=== PATIENT | female | born 1985 | race Caucasian/White ===

== ENCOUNTER 2018-05-06 11:16 | Outpatient (CLI) | payer OTHER ==
[2018-05-06] MEDS: BETAMETHASONE SOLUSPAN 6MG/ML INJ 5ML (J0702) IM (11:38)
[2018-05-07] MEDS ORDERED: BETAMETHASONE SOLUSPAN 6MG/ML INJ 5ML (J0702) IM (12:15)
== END 2018-05-06 11:40 | disposition home or self-care (01) ==
LOC: M LDO 11:16
DX: O26.893 Other specified pregnancy related conditions, third trimester (principal); Z3A.31 31 weeks gestation of pregnancy; O26.853 Spotting complicating pregnancy, third trimester
CPT/HCPCS: J0702

== ENCOUNTER 2018-05-07 14:01 | Outpatient (CLI) | payer OTHER ==
[2018-05-07] MEDS: BETAMETHASONE SOLUSPAN 6MG/ML INJ 5ML (J0702) IM (14:29)
== END 2018-05-07 15:00 | disposition home or self-care (01) ==
LOC: M LDO 14:01
DX: O26.893 Other specified pregnancy related conditions, third trimester (principal); Z3A.31 31 weeks gestation of pregnancy
CPT/HCPCS: J0702

== ENCOUNTER 2018-05-18 15:15 | Inpatient (IN) | payer OTHER ==
[2018-05-18] MEDS ORDERED: ACETAMINOPHEN TAB 650MG DOSE (2X325MG) PO (17:45)
[2018-05-18] MEDS ORDERED: DOCUSATE SODIUM 100 MG CAP PO (17:45)
[2018-05-18] MEDS ORDERED: diphenhydrAMINE 25 MG CAP PO (17:45)
[2018-05-18] MEDS: AZITHROMYCIN 250 MG TAB PO (17:45)
[2018-05-18] MEDS: AMPICILLIN SOD 2 GM in APPROPRIATE DILUENT 20 ML IV (17:45)
[2018-05-18 18:37] LABS: BASO % 0.2 % (0.0-1.0); EOS % 0.4 % (0.0-3.0); HEMATOCRIT 36.4 % (36.0-47.0); HEMOGLOBIN 12.2 g/dl (12.0-15.5); IMMATURE GRANULOCYTE % 0.4 % (0-3.0); LYMPH % 10.5 % (24.0-44.0); MEAN CORPUSCULAR HEMOGLOBIN 28.6 pg (27.0-33.0); MEAN CORPUSCULAR HGB CONC 33.5 g/dl (32.0-36.5); MEAN CORPUSCULAR VOLUME 85.4 fl (80.0-96.0); MONO # 0.5 10^3/uL (0.0-0.8); MONO % 5.3 % (0.0-5.0); NEUTROPHILS % 83.2 % (36.0-66.0); PLATELET COUNT, AUTOMATED 209 10^3/uL (150-450); RED BLOOD COUNT 4.26 10^6/uL (4.00-5.40); WHITE BLOOD COUNT 9.7 10^3/uL (4.0-10.0)
[2018-05-18 19:08] LABS: AMPHETAMINES URINE REFLEX NEGATIVE (NEGATIVE); BARBITURATES URINE REFLEX NEGATIVE (NEGATIVE); BENZODIAZEPINES URINE REFLEX NEGATIVE (NEGATIVE); CANNABINOIDS URINE REFLEX NEGATIVE (NEGATIVE); COCAINE METABOLITE URINE REFLE NEGATIVE (NEGATIVE); METHADONE URINE REFLEX NEGATIVE (NEGATIVE); OPIATES URINE REFLEX NEGATIVE (NEGATIVE); PHENCYCLIDINE URINE REFLEX NEGATIVE (NEGATIVE)
[2018-05-18 19:16] LABS: AMORPHOUS SEDIMENT SMALL (NEGATIVE); APPEARANCE, URINE CLEAR (CLEAR); BACTERIA, URINE AUTO NEGATIVE (NEGATIVE); BILIRUBIN, URINE AUTO NEGATIVE (NEGATIVE); BLOOD, URINE BLOOD NEGATIVE (NEGATIVE); CALCIUM OXALATE CRYSTALS SMALL; COLOR, URINE YELLOW (YELLOW); GLUCOSE, URINE (UA) AUTO NEGATIVE (NEGATIVE); KETONE, URINE AUTO NEGATIVE (NEGATIVE); LEUKOCYTE ESTERASE, URINE AUTO 1+ (NEGATIVE); MUCUS, URINE SMALL (NEGATIVE); NITRITE, URINE AUTO NEGATIVE (NEGATIVE); PROTEIN, URINE AUTO NEGATIVE (NEGATIVE); RBC, URINE AUTO 3 /HPF (0-3); SPECIFIC GRAVITY URINE AUTO 1.017 (1.002-1.035); SQUAMOUS EPITHELIAL CELL UR AU 0 /HPF (0-6); UROBILINOGEN, URINE AUTO 0.2 mg/dL (0.0-2.0); WBC, URINE AUTO 10 /HPF (0-3)
[2018-05-18] MEDS: AMPICILLIN SOD 1 GM in APPROPRIATE DILUENT 10 ML IV (19:56)
[2018-05-18 20:49] LABS: HBSAG L&D NEGATIVE (NEGATIVE)
[2018-05-19] MEDS: AMPICILLIN SOD 1 GM in APPROPRIATE DILUENT 10 ML IV ×6 (00:09→20:18)
[2018-05-19] MEDS ORDERED: MAG Sulf (L&D) 4 GM/100 ML 4 GM in APPROPRIATE DILUENT 1 EA IV (07:00)
[2018-05-19] MEDS ORDERED: MAG Sulf (OBGYN) 20GM/500ML 20,000 MG in APPROPRIATE DILUENT 1 EA IV (07:20)
[2018-05-19 07:25] LABS: HEMATOCRIT 33.3 % (36.0-47.0); HEMOGLOBIN 11.2 g/dl (12.0-15.5); MEAN CORPUSCULAR HEMOGLOBIN 29.3 pg (27.0-33.0); MEAN CORPUSCULAR HGB CONC 33.6 g/dl (32.0-36.5); MEAN CORPUSCULAR VOLUME 87.2 fl (80.0-96.0); PLATELET COUNT, AUTOMATED 156 10^3/uL (150-450); RED BLOOD COUNT 3.82 10^6/uL (4.00-5.40); WHITE BLOOD COUNT 9.9 10^3/uL (4.0-10.0)
[2018-05-19] MEDS: PRENATAL VITAMINS CHEWABLE TABLET PO (08:13)
[2018-05-20] MEDS: AMPICILLIN SOD 1 GM in APPROPRIATE DILUENT 10 ML IV ×3 (00:10→08:05)
[2018-05-20] MEDS: BUTORPHANOL 2 MG/ML INJ (J0595) IV (03:30)
[2018-05-20] MEDS ORDERED: OXYTOCIN 30 UNITS IN 0.9% NaCl 500ML IV BAG (J2590) As Ordered (07:22)
[2018-05-20] MEDS: PRENATAL VITAMINS CHEWABLE TABLET PO (08:05)
[2018-05-20] MEDS ORDERED: FENTANYL 2MCG/ML ROPIVACAINE 0.2% IN 0.9% NACL 200ML IVBAG As Ordered (08:26)
[2018-05-20] MEDS: FENTANYL/ROPIVACAINE/NACL BAG 200 ML EPIDURAL (08:55)
[2018-05-20] MEDS: miSOPROStol 200 MCG TAB (S0191) PR (10:22)
[2018-05-20] MEDS ORDERED: diphenhydrAMINE INJ 50MG/ML VIAL (J1200) IV (10:30)
[2018-05-20] MEDS ORDERED: ONDANSETRON 4MG/2ML VIAL (J2405) IV (10:30)
[2018-05-20] MEDS ORDERED: NALOXONE INJ 0.4 MG/1 ML VIAL (J2310) IV (10:30)
[2018-05-20] MEDS ORDERED: REFRIGERATOR IV KEYS XX (10:30)
[2018-05-20] MEDS ORDERED: LACTATED RINGER'S 1000 ML IV (10:30)
[2018-05-20] MEDS ORDERED: EPIDURAL/PCA KEYS XX (10:30)
[2018-05-20] MEDS ORDERED: ePHEDrine SULFATE 25 MG/5 ML(5MG/ML) SYRINGE IV (10:30)
[2018-05-20] MEDS ORDERED: EPIDURAL COMMENT XX (10:30)
[2018-05-20 10:42] LABS: CORD GAS ABE V -2.5; CORD GAS HCO3 V 21.3 MEQ/L; CORD GAS O2 SAT V 88.8 %; CORD GAS PCO2 V 34.5 mmHg; CORD GAS PH V 7.409 UNITS; CORD GAS PO2 V 40.4 mmHg; CORD GAS SBC V 22.2 MEQ/L; CORD GAS TCO2 V 22.4 MEQ/L
[2018-05-20 10:43] LABS: CORD GAS ABE A -3.1; CORD GAS HCO3 A 23.2 MEQ/L; CORD GAS PO2 A 19.6 mmHg; CORD GAS SBC A 20.7 MEQ/L; CORD GAS TCO2 A 24.6 MEQ/L
[2018-05-20] MEDS ORDERED: OXYTOCIN DRIP 30 UNITS in APPROPRIATE DILUENT 1 EA IV (11:03)
[2018-05-20] MEDS ORDERED: MOM 30ML SUSPENSION UDC PO (11:15)
[2018-05-20] MEDS ORDERED: DIBUCAINE 1% OINTMENT 30GM TOP (11:15)
[2018-05-20] MEDS ORDERED: MEASLES,MUMPS,RUBELLA VACCINE INJ (MMR-II) (90707) SC (11:15)
[2018-05-20] MEDS ORDERED: DOCUSATE SODIUM 100 MG CAP PO (11:15)
[2018-05-20] MEDS ORDERED: RHOGAM 300 MCG (1500 IU) INJ (J2790) IM (11:15)
[2018-05-20] MEDS ORDERED: ANUSOL HC CREAM 30GM TOP (11:15)
[2018-05-20] MEDS ORDERED: OXYTOCIN INJ 10 UNITS/ML VIAL (J2590) IV (11:15)
[2018-05-20] MEDS: METHYLERGONOVINE MALEATE 0.2 MG TAB PO ×2 (13:30→17:47)
[2018-05-20] MEDS ORDERED: OXYTOCIN INJ 10 UNITS/ML VIAL (J2590) As Ordered (14:22)
[2018-05-20] MEDS: IBUPROFEN 800 MG TAB PO (15:06)
[2018-05-20] MEDS: ACETAMINOPHEN 500 MG TAB PO (19:47)
[2018-05-21] MEDS: IBUPROFEN 800 MG TAB PO (00:01)
[2018-05-21] MEDS: METHYLERGONOVINE MALEATE 0.2 MG TAB PO ×2 (06:01)
[2018-05-21 07:19] LABS: HEMATOCRIT 34.6 % (36.0-47.0); HEMOGLOBIN 11.2 g/dl (12.0-15.5); MEAN CORPUSCULAR HEMOGLOBIN 28.1 pg (27.0-33.0); MEAN CORPUSCULAR HGB CONC 32.4 g/dl (32.0-36.5); MEAN CORPUSCULAR VOLUME 86.9 fl (80.0-96.0); PLATELET COUNT, AUTOMATED 179 10^3/uL (150-450); RED BLOOD COUNT 3.98 10^6/uL (4.00-5.40); RED CELL DISTRIBUTION WIDTH 12.9 % (11.5-14.5); WHITE BLOOD COUNT 6.5 10^3/uL (4.0-10.0)
[2018-05-21] MEDS ORDERED: METHYLERGONOVINE MALEATE 0.2 MG TAB PO (10:00)
== END 2018-05-21 14:10 | disposition home or self-care (01) | DRG 775 ==
LOC: M LDO 15:15 → M OBS 05-20 13:35 → M LDI 17:51
PROVIDERS: Obstetrics & Gynecology
PROC: 10E0XZZ Delivery of Products of Conception, External Approach (ICD-10-PCS; principal; 2018-05-20)
DX: O42.013 Preterm premature rupture of membranes, onset of labor within 24 hours of rupture, third trimester (principal); O60.14X0 Preterm labor third trimester with preterm delivery third trimester, not applicable or unspecified; Z37.0 Single live birth; Z3A.33 33 weeks gestation of pregnancy; O99.820 Streptococcus B carrier state complicating pregnancy; O99.844 Bariatric surgery status complicating childbirth

== ENCOUNTER → 2019-04-20 | Outpatient (CLI) | payer OTHER ==
[~2019-04-20] MED LIST: DIBU1OIN TOP; MAPA500T2 PO; PRENTAB9 PO
--- NOTE | 2019-04-20 15:16 | REP ---
Left ankle five views : There is no fracture or dislocation. Mineralization and joint spaces are normal. There are no calcifications or foreign bodies. There is a calcaneal plantar spur. Impression: Calcaneal plantar spur, otherwise, negative left ankle . Electronically Signed by Misael Ibrahim MD 04/20/2019 03:07 P
== END ==
LOC: M LRY 09:34
PROVIDERS: ATTEND Family Medicine
DX: M25.572 Pain in left ankle and joints of left foot (principal)

== ENCOUNTER → 2020-02-05 | Outpatient (CLI) | payer OTHER ==
[~2020-02-05] MED LIST changes: +IBUP80TA PO
== END ==
LOC: M LABSMTC 09:40
PROVIDERS: ATTEND Anesthesiology
DX: Z11.59 Encounter for screening for other viral diseases (principal); Z01.818 Encounter for other preprocedural examination

== ENCOUNTER 2020-02-07 07:05 | Day surgery (SDC) | payer OTHER ==
[~2020-02-07] VITALS: Ht 175.3 cm; Wt 110.2 kg
[~2020-02-07 07:05] MED LIST changes: +LR 1,000 ML IV ONE; +ceFAZolin SOD 2 GM in IV 1 EA IV ONE
[2020-02-07] MEDS ORDERED: ROPIvacaine 0.5% 30ML INJECTION (J2795 PER 1MG) ONE (07:06)
[2020-02-07] MEDS ORDERED: dexameTHASONE 10MG/1ML VIAL PRES.FREE (J1100 PER 1MG) ONE (07:06)
[2020-02-07] MEDS ORDERED: LIDOCAINE 2% 100MG/5ML SDV (FOR ANES.) As Ordered ONE (08:16)
[2020-02-07] MEDS ORDERED: fentaNYL 250 MCG/5 ML INJECTION (J3010) As Ordered ONE (08:16)
[2020-02-07] MEDS ORDERED: MIDAZOLAM INJ 2MG/2ML VIAL (J2250 PER 1MG) As Ordered ONE (08:16)
[2020-02-07] MEDS ORDERED: ROCURONIUM BROMIDE 50 MG/5 ML VIAL As Ordered ONE (08:16)
[2020-02-07] MEDS ORDERED: propofoL 200 MG/20 ML VIAL As Ordered ONE (08:16)
[2020-02-07] MEDS ORDERED: BUPIVACAINE HCL 0.5% 30 ML VIAL As Ordered ONE (09:57)
[2020-02-07] MEDS ORDERED: KETOROLAC 60 MG/2 ML VIAL As Ordered ONE (10:09)
[2020-02-07] MEDS ORDERED: ONDANSETRON 4MG/2ML VIAL As Ordered ONE (10:09)
[2020-02-07] MEDS ORDERED: ACETAMINOPHEN 1000MG 100ML IV BTL (OFIRMEV) (J0131 PER 10MG) As Ordered ONE (10:09)
[2020-02-07] MEDS ORDERED: dexameTHASONE 4 MG/ML 1ML VIAL (J1100 PER 1MG) As Ordered ONE (10:09)
[2020-02-07] MEDS ORDERED: SUGAMMADEX SODIUM 500 MG/5 ML VIAL (BRIDION) As Ordered ONE (10:19)
[2020-02-07] MEDS ORDERED: oxyCODONE 5MG TAB PO PRN (11:15)
[2020-02-07] MEDS ORDERED: fentaNYL 100 MCG/2 ML INJECTION (J3010) IV PRN (11:15)
[2020-02-07] MEDS ORDERED: LR 1,000 ML IV SCH ×2 (11:15)
[2020-02-07] MEDS ORDERED: ONDANSETRON 4MG/2ML VIAL IV PRN (11:15)
[2020-02-07] MEDS ORDERED: METOCLOPRAMIDE INJ 10MG/2ML VIAL (J2765 PER 1) As Ordered ONE (11:21)
[2020-02-07] MEDS ORDERED: METOCLOPRAMIDE INJ 10MG/2ML VIAL (J2765 PER 1) IV ONE (11:45)
[2020-02-07 13:40] VITALS: BP 118/54
--- NOTE | 2020-02-09 20:30 | RO ---
DATE OF PROCEDURE: 02/07/2020 PREPROCEDURE DIAGNOSIS: Left ankle instability. POSTPROCEDURE DIAGNOSIS: Left ankle instability. PROCEDURE: Left Brostrom-Blair procedure. SURGEON: Eula Lawson MD EMBEDDED SOFTWARE PROGRAMMER: ALEYDA Pal ANESTHESIA: ESTIMATED BLOOD LOSS: 25 mL. COMPLICATIONS: None. CONDITION: Stable to recovery. IMPLANTS: Arthrex 3.0 SutureTaks double-loaded times two. INDICATIONS: Beti Heredia is a 34-year-old female who has had longstanding pain and repeated ankle sprains due to left ankle instability. She has failed conservative measures. Risks and benefits of surgery were discussed with the patient in detail and include, but are not limited to, infection, damage to nerves and blood vessels, continued pain and stiffness, need for additional procedures. Informed consent was obtained in the office. DESCRIPTION OF PROCEDURE: The patient was met in the preoperative holding area where her left lower extremity was marked as the correct operative site. She was taken to the operating room and placed in the supine position on the operating room table. Bony prominences were well padded. She received antibiotics within 60 minutes prior to incision. A well-padded tourniquet was placed on the left upper thigh. It was set to 275 mmHg and was up for 38 minutes. The left lower extremity was prepped and draped in the normal sterile fashion. An official time-out was held where the correct patient, operative side and operative procedure were verified. Following this, an incision was made over the anterior aspect of the fibula at the level of the tibiotalar joint. Careful dissection to the level of the fibula was performed. A cuff of tissue was taken off the distal fibula in the region of the anterior talofibular ligament (ATFL) and calcaneofibular ligament (CFL). Tissue was attenuated and redundant in this area. There was what appeared to be a possible small cyst at the distal aspect of the fibula, which was also removed and sent to pathology. Distal aspect of the fibula was debrided of any remaining soft tissues. Copious irrigation was performed to the joint. I also made a small incision in the peroneal tendon sheath to allow visualization of the tendons, and there was a fair amount of fluid that was removed from the tendon sheath as well. Next, two suture anchors were placed in the region of the ATFL and CFL. Following this, the sutures were passed through the cuff of tissue with lateral ligament and capsule. They were secured down tightly to the fibula with the ankle in neutral dorsiflexion and slight eversion. After this, there was a nice bumper of tissue around the distal fibula. It was further secured with one #2-0 FiberWire and the extensor retinaculum was reinforced to the repair using #0 Vicryl in the Blair modification. Following this repair, the patient had a stable anterior drawer and talar tilt exam. Copious irrigation was performed. Soft tissues were closed using #3-0 Vicryl and skin was closed using #3-0 nylon. A sterile dressing was applied followed by a well-padded splint. She was extubated and transferred to the recovery room in stable condition. PLAN: The patient will be non-weightbearing on the left lower extremity for 6 weeks. She will be on aspirin for deep vein thrombosis (DVT) prophylaxis. I will see her back in the office in 2 weeks for suture removal.
== END 2020-02-07 13:50 | disposition home or self-care (01) ==
LOC: M SDC 07:05
PROVIDERS: ATTEND Orthopaedic Surgery
DX: M25.372 Other instability, left ankle (principal); Z91.040 Latex allergy status
CPT/HCPCS: 27698; 64445; 81025; 88300; C1713; J0131; J0690; J1100; J1885; J2250; J2405; J2765; J2795; J3010